=== PATIENT | female | born 1955 | race Caucasian/White ===

== ENCOUNTER 2016-08-11 15:59 | Emergency (ER) | payer MEDICAID, OTHER ==
[2016-08-11 17:04] VITALS: BP 143/73
--- NOTE | 2016-08-11 17:37 | UC ---
Ear Complaint HPI - HPI Summary HPI Summary: right ear pain for 3d. Feels like she's "coming down with something", dry cough , general malaise, mild sinus drainage. No drainage from ear. No fever. Hurts to turn onto that ear at night. - History of Current Complaint Chief Complaint: UCGeneralIllness Stated Complaint: BILATERAL EAR PAIN/SWELLING Time Seen by Provider: 08/11/16 17:28 Hx Obtained From: Patient Onset/Duration: Gradual Onset, Lasting Days - 3 Severity Initially: Mild Severity Currently: Mild Aggravating Factors: Nothing Alleviating Factors: Nothing Associated Signs/Symptoms: Positive: URI Symptoms. Negative: Discharge, Hearing Loss, Foreign Body Sensation, Trauma to Ear, Swelling @ - Allergies/Home Medications Allergies/Adverse Reactions: Allergies Allergy/AdvReac Type Severity Reaction Status Date / Time Lisinopril AdvReac See Comment Verified 08/11/16 17:04 Home Medications: Home Medications Aspirin [Aspirin Adult Low Strengt] 81 mg PO DAILY 08/11/16 [History Confirmed 08/11/16] Atenolol [Tenormin 100 MG] 100 mg PO DAILY 08/11/16 [History Confirmed 08/11/16] Cholecalciferol [Vitamin D] 1,000 unit PO DAILY 08/11/16 [History Confirmed ] Ciproflox/Dexameth OTIC.SUSP* [Ciprodex Otic*] 1 drop .SEE ORDER ONCE 08/11/16 [ History Confirmed 08/11/16] Eye Cream 1 udc BOTH EYES BEDTIME 08/11/16 [History Confirmed 08/11/16] Fluticasone NASAL SPRAY 50MCG* [Flonase NASAL SPRAY 50MCG*] 1 spray BOTH NARES DAILY 08/11/16 [History Confirmed 08/11/16] Hydrochlorothiazide TAB* [Hydrodiuril TAB*] 25 mg PO DAILY 08/11/16 [History Confirmed 08/11/16] Iron W/ Vitamins [Geritol Complete] 1 tab PO WEEKLY 08/11/16 [History Confirmed 08/11/16] Levothyroxine TAB* [Synthroid TAB*] 88 mcg PO DAILY 08/11/16 [History Confirmed 08/11/16] Loratadine [Claritin] 10 mg PO BEDTIME 08/11/16 [History Confirmed 08/11/16] Simvastatin TAB(NF) [Zocor(NF)] 20 mg PO BEDTIME 08/11/16 [History Confirmed ] PMH/Surg Hx/FS Hx/Imm Hx Endocrine History Of: Reports: Thyroid Disease Cardiovascular History Of: Reports: Hypertension - Surgical History Surgical History: Yes Surgery Procedure, Year, and Place: HYSTERECTOMY. C-SECT--1975 - Social History Occupation: Retired Lives: With Family Alcohol Use: None Substance Use Type: None Smoking Status (MU): Never Smoked Tobacco Review of Systems Constitutional: Negative Skin: Negative Eyes: Negative ENT: Ear Ache, Nasal Discharge Respiratory: Cough Cardiovascular: Negative Gastrointestinal: Negative Genitourinary: Negative Motor: Negative Neurovascular: Negative Musculoskeletal: Negative Neurological: Negative Psychological: Negative All Other Systems Reviewed And Are Negative: Yes Physical Exam Triage Information Reviewed: Yes Appearance: Well-Appearing, No Pain Distress, Well-Nourished Vital Signs: Initial Vital Signs Temp 98.2 F 08/11/16 16:55 Pulse 71 08/11/16 16:55 Resp 16 08/11/16 16:55 BP 143/73 08/11/16 16:55 Pulse Ox 96 08/11/16 16:55 Vital Signs Reviewed: Yes Eye Exam: Normal ENT: Positive: Hearing grossly normal, Pharynx normal, Nasal congestion, TMs normal, Other: - right ear canal swollen with whitish discharge Neck exam: Normal Respiratory Exam: Normal Cardiovascular Exam: Normal Musculoskeletal Exam: Normal Neurological Exam: Normal Psychological Exam: Normal Skin Exam: Normal Ear Complaint Course/Dx - Differential Dx/Diagnosis Differential Diagnosis/HQI/PQRI: Otitis Externa, Otitis Media Provider Diagnoses: otitis externa Discharge - Discharge Plan Condition: Stable Disposition: HOME Prescriptions: Neomyc/Polym/HC 1% OTIC SUSP* [Cortisporin Otic Susp 1%*] 4 drop RIGHT EAR QID # 1 btl Patient Education Materials: Otitis Externa (ED)
== END 2016-08-11 17:42 | disposition home or self-care (01) ==
LOC: UCCORT 15:59
DX: H60.91 Unspecified otitis externa, right ear (principal); E07.9 Disorder of thyroid, unspecified; I10 Essential (primary) hypertension; Z88.8 Allergy status to other drugs, medicaments and biological substances
CPT/HCPCS: 99202; G0463

== ENCOUNTER 2017-10-29 10:20 | Emergency (ER) | payer OTHER ==
[2017-10-29 11:02] VITALS: BP 146/77
--- NOTE | 2017-10-29 11:04 | UC ---
Ear Complaint HPI - HPI Summary HPI Summary: Pt presents with ?FB in left ear. 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 She turned to look at her and the qtip came out of her ear - she noticed it did not have a cotton head on it and came directly to because she thinks it is in her ear. Denies pain or decreased hearing - History of Current Complaint Chief Complaint: UCEar Stated Complaint: EAR COMPLAINT Time Seen by Provider: 10/29/17 11:04 Hx Obtained From: Patient Onset/Duration: Sudden Onset Severity Currently: None Pain Intensity: 0 - Allergies/Home Medications Allergies/Adverse Reactions: Allergies Allergy/AdvReac Type Severity Reaction Status Date / Time lisinopril Allergy See Comment Verified 10/29/17 10:55 PMH/Surg Hx/FS Hx/Imm Hx Previously Healthy: Yes Endocrine History: Hypothyroidism, Dyslipidemia Cardiovascular History: Hypertension - Surgical History Surgical History: Yes Surgery Procedure, Year, and Place: HYSTERECTOMY. C-SECT--1974 - Family History Known Family History: Positive: Hypertension - Social History Occupation: Employed Full-time Lives: With Family Alcohol Use: None Substance Use Type: None Smoking Status (MU): Never Smoked Tobacco Review of Systems Constitutional: Negative Skin: Negative Eyes: Negative ENT: Other - ?FB in ear Respiratory: Negative Cardiovascular: Negative Neurovascular: Negative Musculoskeletal: Negative Neurological: Negative Psychological: Negative All Other Systems Reviewed And Are Negative: Yes Physical Exam - Summary Physical Exam Summary: GENERAL: NAD. WDWN. No pain distress. SKIN: No rashes, sores, ulcers, masses, lesions. HEENT: Head: AT/NC Eyes: EOM intact. Conjunctiva clear without inflammation or discharge. Ears: Hearing grossly normal. TMs intact, no bulging, erythema, or edema. Nose: Nasal mucosa pink and moist. NTTP maxillary and frontal sinus. Throat: Posterior oropharynx without exudates, erythema, or tonsillar enlargement. Uvula midline. NECK: Supple. Nontender. No lymphadenopathy. CHEST: CTAB. No r/r/w. No accessory muscle use. Breathing comfortably and in no distress. CV: RRR. Without m/r/g. Pulses intact. Brisk cap refill. NEURO: Alert. CN II-XII grossly intact. PSYCH: Age appropriate behavior. Triage Information Reviewed: Yes Vital Signs: Initial Vital Signs Temp 98.3 F 10/29/17 10:59 Pulse 84 10/29/17 10:59 Resp 20 10/29/17 10:59 BP 146/77 10/29/17 10:59 Pulse Ox 99 10/29/17 10:59 Ear Complaint Course/Dx - Course Course Of Treatment: No FB in ear. Pt reassured. - Differential Dx/Diagnosis Provider Diagnoses: cotton swab in ear Discharge - Sign-Out/Discharge Documenting (check all that apply): Discharge - Discharge Plan Condition: Stable Disposition: HOME Patient Education Materials: Ear Foreign Body (ED) Referrals: Tanya Abreu MD [Primary Care Provider] - Additional Instructions: If you develop a fever, shortness of breath, chest pain, new or worsening symptoms - please call your PCP or go to the ED. - Billing Disposition and Condition Condition: STABLE Disposition: HOME
== END 2017-10-29 11:17 | disposition home or self-care (01) ==
LOC: UCCORT 10:20
DX: Z03.89 Encounter for observation for other suspected diseases and conditions ruled out (principal); Z88.8 Allergy status to other drugs, medicaments and biological substances; I10 Essential (primary) hypertension
CPT/HCPCS: 99211; G0463

== ENCOUNTER 2017-11-21 08:18 | Emergency (ER) | payer OTHER ==
[2017-11-21 08:35] VITALS: BP 154/69
--- NOTE | 2017-11-21 08:47 | ED ---
Throat Pain/Nasal Congestion - HPI Summary HPI Summary: 62 yr old female with the complaint of sinus pressure, left ear ache. Onset three days ago. She has yellow green nasal discharge. No fever. - History of Current Complaint Chief Complaint: UCEar Time Seen by Provider: 11/21/17 08:37 - Allergies/Home Medications Allergies/Adverse Reactions: Allergies Allergy/AdvReac Type Severity Reaction Status Date / Time grapefruit Allergy Swelling Verified 11/21/17 08:28 Of Face,Lips,& Throat Home Medications: Home Medications Fluticasone NASAL SPRAY 50MCG* [Flonase NASAL SPRAY 50MCG*] 1 spray ONE NARE Q12HR PRN 11/21/17 [History Confirmed 11/21/17] Lisinopril TAB* [Prinivil TAB 10 MG*] 10 mg PO DAILY 11/21/17 [History Confirmed 11/21/17] PMH/Surg Hx/FS Hx/Imm Hx Endocrine/Hematology History: Reports: Hx Thyroid Disease Cardiovascular History: Reports: Hx Hypertension - Cancer History Cancer Type, Location and Year: OVARIAN - Surgical History Surgery Procedure, Year, and Place: HYSTERECTOMY. C-SECT--1974 Infectious Disease History: No Infectious Disease History: Denies: Traveled Outside the [place] in Last 30 Days - Family History Known Family History: Positive: Hypertension - Social History Alcohol Use: None Substance Use Type: Reports: None Smoking Status (MU): Never Smoked Tobacco Review of Systems Constitutional: Negative Positive: Ear Ache, Nasal Discharge Positive: Cough All Other Systems Reviewed And Are Negative: Yes Physical Exam Triage Information Reviewed: Yes Vital Signs On Initial Exam: Initial Vitals Temp Pulse Resp BP Pulse Ox 97.6 F 91 16 154/69 98 11/21/17 08:26 11/21/17 08:26 11/21/17 08:26 11/21/17 08:26 11/21/17 08:26 Vital Signs Reviewed: Yes Appearance: Positive: Well-Appearing, No Pain Distress Skin: Positive: Warm Head/Face: Positive: Normal Head/Face Inspection Eyes: Positive: EOMI ENT: Positive: Pharynx normal, Nasal congestion, TMs normal, Sinus tenderness Respiratory/Lung Sounds: Positive: Clear to Auscultation, Breath Sounds Present Cardiovascular: Positive: RRR. Negative: Murmur Abdomen Description: Positive: Nontender Neurological: Positive: Sensory/Motor Intact, Alert, Oriented to Person Place, Time, CN Intact II-III Psychiatric: Positive: Normal - Bridgette Coma Scale Best Eye Response: 4 - Spontaneous Best Motor Response: 6 - Obeys Commands Best Verbal Response: 5 - Oriented Coma Scale Total: 15 Diagnostics - Vital Signs Vital Signs Temp Pulse Resp BP Pulse Ox 11/21/17 08:26 97.6 F 91 16 154/69 98 - Laboratory Lab Statement: Any lab studies that have been ordered have been reviewed, and results considered in the medical decision making process. EENT Course/Dx - Course Course Of Treatment: Sinusitis, rx augmentin. FU with PMD for BP recheck - Diagnoses Provider Diagnoses: Hypertension, Sinusitis Discharge - Sign-Out/Discharge Documenting (check all that apply): Discharge/Admit/Transfer - Discharge Plan Condition: Good Disposition: HOME Prescriptions: Amoxicillin/Clavulanate TAB* [Augmentin TAB 875*] 875 mg PO BID #20 tab Patient Education Materials: Sinusitis (ED), Hypertension (ED) Referrals: Tanya Abreu MD [Primary Care Provider] - 2 Days - Billing Disposition and Condition Condition: GOOD Disposition: HOME
== END 2017-11-21 08:48 | disposition home or self-care (01) ==
LOC: UCCORT 08:18
DX: J32.9 Chronic sinusitis, unspecified (principal); I10 Essential (primary) hypertension
CPT/HCPCS: 99212; G0463

== ENCOUNTER 2018-10-02 08:02 | Emergency (ER) | payer MEDICARE, MEDICAID ==
[2018-10-02 08:35] VITALS: BP 122/82
--- NOTE | 2018-10-02 08:45 | UC ---
Throat Pain/Nasal Dustin HPI - HPI Summary HPI Summary: nasal congestion x 3 days pnd, sinus pain and pressure with yellow / green discharge no fever, no chills, no sore throat, no cough - History of Current Complaint Chief Complaint: UCRespiratory Stated Complaint: SINUSES AND R EAR PAIN Time Seen by Provider: 10/02/18 08:12 Hx Obtained From: Patient Onset/Duration: Gradual Onset, Lasting Days - 3, Still Present Severity: Moderate Pain Intensity: 0 Cough: None Associated Signs & Symptoms: Positive: Sinus Discomfort, Nasal Discharge. Negative: Dysphagia, FB Sensation, Drooling, Wheezing, Hoarseness, Fever, Vomiting, Rash - Allergies/Home Medications Allergies/Adverse Reactions: Allergies Allergy/AdvReac Type Severity Reaction Status Date / Time grapefruit Allergy Swelling Verified 10/02/18 08:27 Of Face,Lips,& Throat Home Medications: Home Medications Levothyroxine TAB* [Synthroid TAB*] 50 mcg PO DAILY 10/02/18 [History Confirmed 10/02/18] Omeprazole 20 mg PO DAILY 10/02/18 [History Confirmed 10/02/18] PMH/Surg Hx/FS Hx/Imm Hx - Additional Past Medical History Additional PMH: ovarian can Endocrine History: Thyroid Disease, Hypothyroidism Cardiovascular History: Hypertension - Surgical History Surgical History: Yes Surgery Procedure, Year, and Place: HYSTERECTOMY. C-SECT--1974 - Family History Known Family History: Positive: Hypertension - Social History Alcohol Use: None Substance Use Type: None Smoking Status (MU): Never Smoked Tobacco Review of Systems All Other Systems Reviewed And Are Negative: Yes Constitutional: Positive: Chills, Fatigue Skin: Positive: Negative Eyes: Positive: Negative ENT: Positive: Ear Ache, Nasal Discharge Respiratory: Positive: Negative Cardiovascular: Positive: Negative Is Patient Immunocompromised?: No Physical Exam Triage Information Reviewed: Yes Appearance: Well-Appearing, No Pain Distress, Well-Nourished Vital Signs: Initial Vital Signs Temp 97.6 F 10/02/18 08:30 Pulse 73 10/02/18 08:30 Resp 18 10/02/18 08:30 BP 122/82 10/02/18 08:30 Pulse Ox 99 10/02/18 08:30 Vital Signs Reviewed: Yes Eye Exam: Normal Eyes: Positive: Conjunctiva Clear ENT: Positive: Normal ENT inspection, Hearing grossly normal, Pharynx normal, Nasal congestion, TMs normal. Negative: Nasal drainage, TM bulging, TM dull, TM red, Tonsillar swelling, Tonsillar exudate, Sinus tenderness Neck: Positive: Supple, Nontender, No Lymphadenopathy Respiratory: Positive: Chest non-tender, Lungs clear, Normal breath sounds Cardiovascular: Positive: RRR, No Murmur, Pulses Normal Skin Exam: Normal Throat Pain/Nasal Course/Dx - Differential Dx/Diagnosis Provider Diagnosis: URI (upper respiratory infection) Discharge - Sign-Out/Discharge Documenting (check all that apply): Patient Departure All imaging exams completed and their final reports reviewed: No Studies - Discharge Plan Condition: Stable Disposition: HOME Patient Education Materials: Upper Respiratory Infection (DC) Referrals: Tnaya Abreu MD [Primary Care Provider] - If Needed - Billing Disposition and Condition Condition: STABLE Disposition: Home
== END 2018-10-02 08:55 | disposition home or self-care (01) ==
LOC: UCCORT 08:02
DX: J06.9 Acute upper respiratory infection, unspecified (principal); I10 Essential (primary) hypertension; E03.9 Hypothyroidism, unspecified; Z79.899 Other long term (current) drug therapy; Z91.018 Allergy to other foods
CPT/HCPCS: 99211; G0463